=== PATIENT | female | born 1965 | race Caucasian/White ===

== ENCOUNTER → 2023-07-07 | Outpatient (CLI) | payer OTHER ==
--- NOTE | 2023-07-12 12:12 | MM ---
Reason for Exam: Screening (asymptomatic). Patient History: Menarche at age 11. First Full-Term at age 23. Postmenopausal. Risk Values: Zoe 5 year model risk: 1.3%. NCI Lifetime model risk: 7.7%. Prior Study Comparison: No prior studies available for comparison. Tissue Density: The breasts are heterogeneously dense, which may obscure small masses. Findings: Analyzed By CAD. There is no suspicious group of microcalcifications or new suspicious mass in either breast. Somewhat nodular breast tissue is seen in the central outer aspect of the right breast and central upper aspect left breast. Spot compression views recommended given there are no prior exams. Chronic nodularity axilla likely representing benign lymph nodes. Overall Assessment: Incomplete: need additional imaging evaluation, BI-RAD 0 Management: Diagnostic Mammogram of both breasts. . Patient should continue monthly self-breast exams. A clinical breast exam by your physician is recommended on an annual basis. This exam should not preclude additional follow-up of suspicious palpable abnormalities. Note on Zoe scores and lifetime risk: 1. A Zoe score greater than 3% is considered moderate risk. If this is the case, consider specialist referral to assess eligibility for a risk reducing agent. 2. If overall lifetime risk for the development of breast cancer is 20% or higher, the patient may qualify for future screening with alternating mammogram and breast MRI. Electronically signed and approved by: Jose Karimi M.D. Radiologis
== END | disposition home or self-care (01) ==
LOC: RADMAMWWP 08:36
PROVIDERS: ATTEND Family Medicine
DX: Z12.31 Encounter for screening mammogram for malignant neoplasm of breast (principal); Z78.0 Asymptomatic menopausal state
CPT/HCPCS: 77067

== ENCOUNTER → 2023-07-13 | Outpatient (CLI) | payer OTHER ==
--- NOTE | 2023-07-13 09:08 | MM ---
Reason for Exam: Additional evaluation requested from abnormal screening. Last screening mammogram was performed less than 1 month ago. Patient History: Menarche at age 11. First Full-Term at age 23. Postmenopausal. Risk Values: Zoe 5 year model risk: 1.3%. NCI Lifetime model risk: 7.7%. Prior Study Comparison: 07/07/2023 Bilateral MG screening mammo w CAD, [facility]. Tissue Density: The breasts are heterogeneously dense, which may obscure small masses. Findings: Analyzed By CAD. On the right, persistent dense tissue and asymmetric density at the upper outer quadrant anterior to middle depth for which further ultrasound evaluation is recommended. On the left, there is a persisting 7 mm circumscribed isodense to low-density nodule 12-1 o'clock middle depth for which further ultrasound evaluation is recommended. Additional areas of asymmetric density on the MLO view do not persist on spot compression. Overall Assessment: Incomplete: need additional imaging evaluation, BI-RAD 0 Management: Diagnostic Breast Ultrasound of both breasts. Upper outer quadrants. Electronically signed and approved by: Chandler Sanchez M.D. Radiologist
--- NOTE | 2023-07-13 10:04 | USB ---
Reason for Exam: Additional evaluation requested from abnormal screening. Patient History: Menarche at age 11. First Full-Term at age 23. Postmenopausal. Risk Values: Zoe 5 year model risk: 1.3%. NCI Lifetime model risk: 7.7%. Technique: Method: Targeted. Prior Study Comparison: 07/07/2023 Bilateral MG screening mammo w CAD, [facility]. Findings: The upper outer quadrant of both breasts, the axilla of both breasts and the retroareolar of both breasts were scanned. Targeted ultrasound bilateral upper outer quadrants including scanning of the subareolar regions and axilla. Right: * At the 10:00 position, 5 cm from the nipple, there is focal heterogeneous area measuring 2.2 cm. * At the 11:00, 5 cm from the nipple, in the area measures 2.1 cm as well. * As there are multiple areas having this appearance in the upper-outer quadrant, focal islands of dense tissue are suspected at this time. Six-month follow-up to reassess. * Otherwise, no solid or cystic lesion or axillary lymphadenopathy. Left: * A couple adjacent cysts measuring 7 mm each correspond well to the mammographic finding. * No other solid or cystic lesion. Areas of dense tissue are present. * A slightly thickened but nonenlarged axillary lymph node with cortex measuring up to 4 mm can be reassessed in 6 months. Overall Assessment: Probably benign, BI-RAD 3 Management: Diagnostic Mammogram of the right breast in 6 months. Diagnostic Breast Ultrasound of both breasts. For the upper outer quadrant right breast and axillary node on the left. A clinical breast exam by your physician is recommended on an annual basis and results should be correlated with mammographic findings. This exam should not preclude additional follow-up of suspicious palpable abnormalities. Results were given to the patient verbally at the time of exam. Electronically signed and approved by: Chandler Sanchez M.D. Radiologist
== END | disposition home or self-care (01) ==
LOC: RADMAMWWP 08:35
PROVIDERS: ATTEND Family Medicine
DX: R92.333 Mammographic heterogeneous density, bilateral breasts (principal); Z78.0 Asymptomatic menopausal state
CPT/HCPCS: 77062; 77066

== ENCOUNTER 2023-11-10 13:15 | Day surgery (SDC) | payer OTHER ==
[2023-11-10] MEDS: LACTATED RINGERS 1,000 ML IV SCH (13:32)
[2023-11-10 13:48] VITALS: RESP 16; TEMP 97.7
[2023-11-10] MEDS: IV FLUID CONTINUATION 1,000 ML IV ONE (13:48)
[2023-11-10] MEDS ORDERED: PROPOFOL 10 MG/ML 20 ML VIAL IV ONE (15:31)
--- NOTE | 2023-11-10 15:48 | P.PCN ---
Date of Procedure: 11/10/23 Procedure(s) Performed: BRIEF HISTORY: Patient is a 58-year-old pleasant white female scheduled for an elective colonoscopy as a part of screening for colon cancer. PROCEDURE PERFORMED: Colonoscopy with snare polypectomy. PREOPERATIVE DIAGNOSIS: Screening for colon cancer. IV sedation per Anesthesia. PROCEDURE: After informed consent was obtained, the patient, was brought into the endoscopy unit. IV sedation was administered by Anesthesia under continuous monitoring. Digital rectal examination was normal. Initially the Olympus CF-160 flexible video colonoscope was then inserted in the rectum, gradually advanced into the cecum without any difficulty. Careful examination was performed as the scope was gradually being withdrawn. Ileocecal valve and the appendiceal orifice were visualized and appeared normal. Prep was excellent. Mucosa of the cecum, ascending colon, transverse colon, descending colon, sigmoid colon, and rectum appeared normal. In the proximal rectum there was a 5 mm sessile polyp removed by cold snare polypectomy retroflexion was performed in the rectum and no lesions were seen. The patient tolerated the procedure well. IMPRESSION: 5 mm proximal rectal polyp status post cold snare polypectomy Rest of the colon appeared normal RECOMMENDATIONS: Findings of this examination were discussed with the patient as well as her family. She was advised to follow-up with the biopsy results. If the biopsy reveals adenoma she can have repeat screening colonoscopy in 5 years.
[2023-11-10 16:08] VITALS: BP 112/78; PULSE 67
== END 2023-11-10 16:24 | disposition home or self-care (01) ==
LOC: ORWHC2ENDO 13:15
PROVIDERS: ATTEND Internal Medicine Gastroenterology
DX: Z12.11 Encounter for screening for malignant neoplasm of colon
CPT/HCPCS: 45385; 88305

== ENCOUNTER → 2024-01-15 | Outpatient (CLI) | payer OTHER ==
--- NOTE | 2024-01-15 10:08 | MM ---
Reason for Exam: Follow-up at short interval from prior study. Last screening mammogram was performed 7 month(s) ago. Risk Values: Zoe 5 year model risk: 0.8%. NCI Lifetime model risk: 5.2%. Prior Study Comparison: 07/07/2023 Bilateral MG screening mammo w CAD, [facility]. 07/13/2023 Bilateral MG 3D work up w/cad CA, [facility]. Tissue Density: Right: The breasts are heterogeneously dense, which may obscure small masses. Findings: Analyzed By CAD. Asymmetric density central and outer aspect CC view anterior to middle depth are redemonstrated. Incompletely disperse on 3-D images. Fairly stable for 6 months. No clear correlate on the MLO view. Further ultrasound reassessment recommended. Overall Assessment: Incomplete: need additional imaging evaluation, BI-RAD 0 Management: Diagnostic Breast Ultrasound of both breasts. Right upper outer quadrant and left axillary lymph node. [facility], , 01/15/2024 10:05 AM. Electronically signed and approved by: Chandler Sanchez M.D. Radiologist
--- NOTE | 2024-01-15 10:52 | USB ---
Reason for Exam: Follow-up at short interval from prior study. Risk Values: Zoe 5 year model risk: 0.8%. NCI Lifetime model risk: 5.2%. Technique: Method: Targeted. Prior Study Comparison: 07/07/2023 Bilateral MG screening mammo w CAD, [facility]. 07/13/2023 Bilateral MG 3D work up w/cad CA, [facility]. Findings: The upper outer quadrant of the right breast, the axilla of both breasts and the retroareolar of both breasts were scanned. Targeted ultrasound upper outer quadrant right breast including scanning of the subareolar region and axilla. Dense heterogeneous areas with some scattered shadowing are redemonstrated, particularly at the 9:00 and 10:00 positions. Again, no discrete mass is identified. No axillary adenopathy. Targeted ultrasound left axilla as well as the subareolar region. A nonenlarged lymph node with borderline thickened cortex up to 2.5 mm remains unchanged for 6 months suggesting a benign, chronic reactive etiology. No other solid or cystic lesion. Overall Assessment: Probably benign, BI-RAD 3 Management: Diagnostic Mammogram of both breasts in 5 months. Diagnostic Breast Ultrasound of the right breast in 5 months. Ongoing short interval follow-up for right upper outer quadrant densities. This will be a total one-year follow-up. Annual exam of the left breast. A clinical breast exam by your physician is recommended on an annual basis and results should be correlated with mammographic findings. This exam should not preclude additional follow-up of suspicious palpable abnormalities. Results were given to the patient verbally at the time of exam. [facility], , 01/15/2024 10:48 AM. Electronically signed and approved by: Chandler Sanchez M.D. Radiologist
== END | disposition home or self-care (01) ==
LOC: RADMAMWWP 09:18
PROVIDERS: ATTEND Family Medicine
DX: R92.8 Other abnormal and inconclusive findings on diagnostic imaging of breast (principal); R92.331 Mammographic heterogeneous density, right breast
CPT/HCPCS: 77061; 77065

== ENCOUNTER → 2024-06-17 | Outpatient (CLI) | payer OTHER ==
--- NOTE | 2024-06-17 13:59 | MM ---
Reason for Exam: Follow-up at short interval from prior study. Last screening mammogram was performed 12 month(s) ago. Patient History: Menarche at age 11. First Full-Term at age 23. Postmenopausal. Last menstrual period: Risk Values: Zoe 5 year model risk: 1.3%. NCI Lifetime model risk: 7.6%. Prior Study Comparison: 07/07/2023 Bilateral MG screening mammo w CAD, [facility]. 07/13/2023 Bilateral MG 3D work up w/cad CA, [facility]. 01/15/2024 Right MG 3D diag mammo w/cad RT, [facility]. Tissue Density: The breasts are heterogeneously dense, which may obscure small masses. Findings: Analyzed By CAD. Stable appearance of the fibroglandular tissue laterally dating back to 07/07/2023. No new suspicious masses, calcifications or distortions. Overall Assessment: Incomplete: need additional imaging evaluation, BI-RAD 0 Management: Diagnostic Breast Ultrasound of the right breast. Ultrasound for completeness of the right breast in area evaluated on prior. Results were given to the patient verbally at the time of exam. Patient should continue monthly self-breast exams. A clinical breast exam by your physician is recommended on an annual basis. This exam should not preclude additional follow-up of suspicious palpable abnormalities. Note on Zoe scores and lifetime risk: 1. A Zoe score greater than 3% is considered moderate risk. If this is the case, consider specialist referral to assess eligibility for a risk reducing agent. 2. If overall lifetime risk for the development of breast cancer is 20% or higher, the patient may qualify for future screening with alternating mammogram and breast MRI. [facility], , 06/17/2024 1:55 PM. Electronically signed and approved by: Gordo Dos Santos DO
--- NOTE | 2024-06-17 15:03 | USB ---
Reason for Exam: Follow-up at short interval from prior study. Patient History: Menarche at age 11. First Full-Term at age 23. Postmenopausal. Risk Values: Zoe 5 year model risk: 1.3%. NCI Lifetime model risk: 7.6%. Technique: Method: Targeted. Prior Study Comparison: 07/07/2023 Bilateral MG screening mammo w CAD, [facility]. 07/13/2023 Bilateral MG 3D work up w/cad CA, [facility]. 01/15/2024 Right MG 3D diag mammo w/cad RT, [facility]. Findings: The upper outer quadrant of the right breast, the axilla of the right breast and the retroareolar of the right breast were scanned. Technique utilized:US breast complete RT Image; Ultrasound imaging of: Area of concern, retroareolar region and axilla. Heterogenous fibroglandular tissue no focal mass. No evidence for organizing fluid collection or mass. Overall Assessment: Benign, BI-RAD 2 Management: Screening Mammogram of both breasts in 1 year. A clinical breast exam by your physician is recommended on an annual basis and results should be correlated with mammographic findings. This exam should not preclude additional follow-up of suspicious palpable abnormalities. Results were given to the patient verbally at the time of exam. [facility], , 06/17/2024 3:00 PM. Electronically signed and approved by: Gordo Dos Santos DO
== END | disposition home or self-care (01) ==
LOC: RADMAMWWP 13:12
PROVIDERS: ATTEND Family Medicine
DX: R92.8 Other abnormal and inconclusive findings on diagnostic imaging of breast (principal); R92.333 Mammographic heterogeneous density, bilateral breasts; Z78.0 Asymptomatic menopausal state
CPT/HCPCS: 77062; 77066